=== PATIENT | female | born 1990 | race African-American/Black ===

== ENCOUNTER 2016-11-20 19:04 | Emergency (ER) | payer SELFPAY ==
[~2016-11-20] VITALS: Ht 162.6 cm; Wt 51.7 kg
[~2016-11-20 19:04] MED LIST: ALBUTEROL
[2016-11-20] MEDS ORDERED: KETOROLAC 60MG/2ML VIAL IM ONE (21:45)
[2016-11-20 22:25] VITALS: BP 117/62
== END 2016-11-20 23:48 | disposition home or self-care (01) ==
LOC: ER 19:18
DX: R07.81 Pleurodynia (principal)
CPT/HCPCS: 71010; 81025; 96372; 99283; J1885; Z7610